=== PATIENT | female | born 1995 | race African-American/Black ===

== ENCOUNTER 2020-03-02 00:53 | Emergency (ER) | payer MEDICAID ==
[~2020-03-02] VITALS: Ht 149.9 cm; Wt 59.0 kg
[2020-03-02 01:00] VITALS: BP 118/82
== END 2020-03-02 03:32 | disposition left against medical advice (07) ==
LOC: ER 00:53
DX: R07.89 Other chest pain (principal); Z53.21 Procedure and treatment not carried out due to patient leaving prior to being seen by health care provider
CPT/HCPCS: 93005